=== PATIENT | male | born 2000 | race Hispanic/Latino ===

== ENCOUNTER 2022-08-31 12:23 | Emergency (ER) | payer OTHER ==
[~2022-08-31] VITALS: Ht 177.8 cm; Wt 74.8 kg
[2022-08-31] MEDS ORDERED: SULF1TAB42 PO (13:39)
[2022-08-31] MEDS: SULFAMETHOX-TMP DS 800/160 TAB PO SCH (13:48)
[2022-08-31 13:53] VITALS: BP 117/72
== END 2022-08-31 13:52 | disposition home or self-care (01) ==
LOC: EDH 12:23
DX: L03.031 Cellulitis of right toe (principal)
CPT/HCPCS: 10060